=== PATIENT | male | born 1950 | race Caucasian/White ===

== ENCOUNTER → 2020-03-24 | Outpatient (CLI) | payer OTHER, MEDICARE ==
[~2020-03-24] VITALS: Ht 172.7 cm; Wt 73.5 kg
[~2020-03-24] MED LIST: CARVEDILOL12.5 MG PO; LOSARTAN POTAS100 MG PO; NABUMETONE 500500 M1 PO; NORVASC 2.5 MG2.5 M1 PO; PROTONIX40 M2 PO
[2020-03-24 13:25] VITALS: BP 121/83
--- NOTE | 2020-03-24 14:23 | NUR ---
Pain Clinic Assessment: 1. History of Osteoarthritis: Left Lower Extremity Right Lower Extremity History of Rheumatoid Arthritis: Not Applicable 2. Height: 5 ft. 8 in. 172.7 cm. Weight: 162.0 lb. oz. 73.483 kg. Patient's BMI: 24.6 3. Vital Signs: BP: 121/83 Pulse: 62 Resp: 16 Temp: 02 Sat: 100 ECG Mon: 4. Pain Intensity: 2 5. Fall Risk: Dizziness: N Needs help standing or walking: N Fallen in the last 3 months: N Fall risk comments: 6. Patient on Blood Thinner: None 7. History of Hypertension: Y 8. Opioid Therapy greater than 6 weeks: N Opiate Contract Signed: 9. Risk Assessment Tool Provided: LOW 10. Functional Assessment Tool: 11. Recreational Drug Use: Never Drug Type: Tobacco Use: Never Smoker Tobacco Type: Amount or Packs/day: How Many Years: Alcohol Use: Yes Frequency: Weekly Quant: 1-2
--- NOTE | 2020-03-25 07:30 | HPC ---
[facility] [address] [place] [address] PAIN MANAGEMENT CONSULTATION Name: JUAN DAVID COLIN Room #: REG VERNON Fabiola#: [id number] Admission: 03/24/20 Attend Phys: Filipe Tyson DO Discharge: Date of : 50 Report #: [id number] THIS REPORT FOR: cc: Prasanna García MD, John L. MD Johnson, James E. DO ~ DATE OF SERVICE: 03/24/2020 CHIEF COMPLAINT: Diffuse chest wall pain. HISTORY OF PRESENT ILLNESS: As you know, the patient is a very pleasant 69-year-old male who reports longstanding history of diffuse chest wall pain. The patient states that he has had these symptoms on and off for over 3-4 years. He states that he received a Medrol Dosepak in the past, which was wholly ineffective at treating the symptoms. He does have a history of prostate cancer and was sent for a nuclear bone scan, which was negative for any metastatic disease. It did show changes within the bilateral knees and shoulders consistent with degenerative arthritic changes. The patient does report night sweats times about 3 weeks. He has had a weight loss of about 4 pounds, but this has restabilized to his normal baseline and has not been a concern to the patient. He reports the Biofreeze topically has been helpful. He was recently taken off of rosuvastatin, which apparently improved some of his back pain, but did not resolve his symptoms entirely. Due to lack of improvement with conservative treatment, the patient was referred to our clinic to discuss options for diffuse chest wall pain treatment. The patient indicates today pain is continuous, "but sometimes just goes away for quite a while." The patient indicates the pain as sharp, shooting, tender when describing symptoms. He indicates pain level of 2/10 daily, average at 5/10, worst pain has been is 8/10. The patient states that "pushing on it" causes increase in pain. This is done at diffuse areas within the chest wall. Nothing tends to improve pain except for anti-inflammatory medications he is taking [id number]. He has been referred to our service to discuss treatment options for diffuse chest wall pain. PAST MEDICAL HISTORY: 1. Hypertension. 2. Dyslipidemia. 3. Gastroesophageal reflux disease. PAST SURGICAL HISTORY: 1. Rotator cuff repair on the left. 2. Rotator cuff repair on the right. 3. Left knee meniscus repair. 4. Cholecystectomy. [address] [address] PAIN MANAGEMENT CONSULTATION Name: JUAN DAVID COLIN Room #: REG CLI Fabiola#: [id number] Admission: 03/24/20 Attend Phys: Filipe Tyson DO Discharge: Date of : 50 Report #: [id number] SOCIAL HISTORY: The patient denies tobacco, IV or illicit drug use. Admits to 1 alcohol beverage per day. He is retired about 11 years ago. He is not receiving workmen's compensation nor is he trying to obtain disability benefits. He is not in litigation in regards to pain. He is unaccompanied at today's visit. REVIEW OF SYSTEMS: Positive for fever, night sweats, wearing corrective eyewear, hearing loss with tinnitus, frequent urination, nocturia, diffuse chest wall pain. All other review of systems negative per 12-point review of systems other than those listed in history of present illness. Pain impact score 5/70 indicating minimal interference of daily activities secondary to pain. ALLERGIES: No reported drug allergies. CURRENT MEDICATIONS: Protonix 40 mg once a day, amlodipine 5 mg once a day, losartan 100 mg per day, carvedilol 12.5 mg b.i.d. IMAGING: No imaging available. PQRS: The patient has known arthritic changes of the bilateral shoulders and bilateral knees. No rheumatoid arthritis. He is placing current pain score 2/10. He is not a fall risk nor has he had a fall in last 3 months. He is not on blood thinners, but is treated for hypertension. He is not on opioids and has a low opiate addiction potential. Pain impact score of 5/70 indicating minimal interference of daily activities secondary to pain. PHYSICAL EXAMINATION: VITAL SIGNS: Blood pressure 121/83, pulse 62, respiratory rate 16 and unlabored. The patient is 100% on room air. Height 5 feet 8 inches tall, weight 162 pounds, BMI calculated 24.6. GENERAL: Well-developed, well-nourished, well-hydrated 69-year-old male appearing stated age. He is in no acute distress, awake, alert and oriented x 3. Current pain score 2/10. HEENT: Normocephalic, atraumatic. Pupils equal, round and reactive. GENERAL: Speech is fluent. The patient deemed an excellent historian. LUNGS: Clear, no wheeze, rhonchi or rales. CARDIOVASCULAR: Regular. No appreciable gallop, no rub. ABDOMEN: Soft, nontender, nondistended. EXTREMITIES: Show no clubbing, no cyanosis, no edema. MUSCULOSKELETAL: The patient has diffuse palpatory tenderness throughout the chest wall. It appears to be related to the cartilaginous structures of the chest wall. There does not appear to be any bony type of pain. Deep pressure over the anterior chest wall, lateral chest wall and posterior chest wall cause an increase in pain. He is intact to light touch throughout dermatomal distribution of T1 through T12, as well as L1 through S1. [facility] [address] [place] [address] PAIN MANAGEMENT CONSULTATION Name: JUAN DAVID COLIN Room #: REG Omero Interiano.#: [id number] Admission: 03/24/20 Attend Phys: Filipe Tyson DO Discharge: Date of : 50 Report #: [id number] There are no rashes, lesions or ulcerations overlying the distribution concerning of herpes zoster. Deep inhalation and exhalation causes no significant change in overall pain. Pressure on the area mainly just inferior to the nipple on the left and above the angle of the rib is the most painful area of discomfort. Upper extremity and lower extremity strength equal and symmetrical. ASSESSMENT: 1. Generalized chest wall pain. 2. Recurrent chronic pain. PLAN: 1. 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 It does not appear to be pleuritic in nature. It is unchanged by inhalation and exhalation consistent with pleurisy of any type. The chest wall discomfort is point specific, but is diffuse in its presentation. The patient indicates no changes in his activities. He has had no changes in diet. He has had no injury to the chest wall, concerning of generalized chondritic reaction to trauma. The patient is unable to correlate the symptoms to any specific activity, but does note pain is exacerbated with lying down. The patient has trialed steroid exposure with no efficacy, which should essentially rule out chondritis as the source of symptoms as one would expect to see significant improvement with a Medrol Dosepak even if transiently. This would rule out the necessity of point specific injections over the area as he has seen no improvement with steroids prior. The patient is agreeable with the plan as he "did not wish to undergo multiple shots." He is interested in looking to more conservative options and to try to determine the source of his ongoing recurrent chest wall symptoms. 2. We did discuss with the patient that treatment options should remain conservative at first as we continue to try to evaluate for the source of symptoms. We would recommend initiation of a nonsteroidal anti-inflammatory. The patient states that he has taken hikj-xis-moijdbg anti-inflammatories in the past with fairly good efficacy. We recommend a prescription form of nabumetone to take 3 times a day with meals. This should help reduce the inflammatory process I believe is promoting most of his symptoms. The patient will initiate the medication as quickly as possible. He will watch for side effects of dyspepsia, worsening of blood pressure, or lower extremity edema. If he notes any side effects, discontinue immediately and call for further instructions. 3. I would recommend the patient begin evaluation for condition such as generalized inflammatory processes. I recommend the patient to undergo labs for erythrocyte sedimentation rate, C-reactive protein, and AMEYA. There is always concern with generalized pain disorder such as one presenting today that an inflammatory process has begun, the fact that it is waxing and waning in its presentation is consistent with some of the rheumatologic issues that could be [address] [address] PAIN MANAGEMENT CONSULTATION Name: JUAN DAVID COLIN Room #: REG VERNON Hicks#: [id number] Admission: 03/24/20 Attend Phys: Filipe Tyson DO Discharge: Date of : 50 Report #: [id number] expected in an advanced aged individual and further evaluation I think is appropriate. The patient is agreeable to undergo the evaluation. We will have those findings, hopefully in the next couple of days to review. 4. I have recommended the patient at least to undergo x-ray imaging of the thoracic spine. Further evaluation necessarily I think it would be helpful. Some of the distribution of the patient's symptoms appears to be dermatomal in its origin and may be specifically related to pathology of the thoracic spine. We do have a nuclear scan that shows negative for any findings in the area, but this does not preclude typical changes in the thoracic region such as thoracic disk bulging or stenosis. We will evaluate this further with x-ray imaging. The findings will be available to the patient tomorrow. 5. We have plans to see the patient back in followup visit once he has completed his lab evaluation and his imaging study. We will then discuss the findings and determine if the nabumetone started will be beneficial. We will keep you apprised of his response. 6. We wish to thank Dr. Prasanna García for the referral of the patient to our clinic. We will keep you apprised of response to treatment as we address his atypical diffuse chest wall pain. Again, we wish to thank you for the opportunity to see the patient in consultation. <ELECTRONICALLY SIGNED> By: Filipe Tyson DO 03/25/20 0730 [id number] Filipe Tyson DO /nt
== END ==
LOC: PAIN 07:00
PROVIDERS: ATTEND Anesthesiology Pain Medicine
DX: M47.814 Spondylosis without myelopathy or radiculopathy, thoracic region (principal); M41.84 Other forms of scoliosis, thoracic region; M47.812 Spondylosis without myelopathy or radiculopathy, cervical region; R07.89 Other chest pain; G89.29 Other chronic pain

== ENCOUNTER → 2020-03-30 | Outpatient (CLI) | payer OTHER, MEDICARE ==
[~2020-03-30] VITALS: Ht 172.7 cm; Wt 73.5 kg
[~2020-03-30] MED LIST changes: +TRIAMTERENE/HCT1 CA1 PO
[2020-03-30 11:05] VITALS: BP 109/77
--- NOTE | 2020-03-30 11:17 | NUR ---
Pain Clinic Assessment: 1. History of Osteoarthritis: Left Lower Extremity Right Lower Extremity History of Rheumatoid Arthritis: Not Applicable 2. Height: 5 ft. 8 in. 172.7 cm. Weight: 162.0 lb. oz. 73.483 kg. Patient's BMI: 24.6 3. Vital Signs: BP: 109/77 Pulse: 72 Resp: 16 Temp: 02 Sat: 98 ECG Mon: 4. Pain Intensity: 3 5. Fall Risk: Dizziness: N Needs help standing or walking: N Fallen in the last 3 months: N Fall risk comments: 6. Patient on Blood Thinner: None 7. History of Hypertension: Y 8. Opioid Therapy greater than 6 weeks: N Opiate Contract Signed: 9. Risk Assessment Tool Provided: LOW 10. Functional Assessment Tool: 11. Recreational Drug Use: Never Drug Type: Tobacco Use: Never Smoker Tobacco Type: Amount or Packs/day: How Many Years: Alcohol Use: Yes Frequency: Quant:
--- NOTE | 2020-03-30 13:25 | HPC ---
[facility] [place] [address] [place] [address] PAIN MANAGEMENT CONSULTATION Name: JUAN DAVID COLIN Room #: REG VERNON Fabiola#: [id number] Admission: 03/30/20 Attend Phys: Filipe Tyson DO Discharge: Date of : 50 Report #: [id number] THIS REPORT FOR: cc: Prasanna García MD, John L. MD Johnson, James E. DO ~ DATE OF SERVICE: 03/30/2020 CHIEF COMPLAINT: Diffuse chest wall pain. HISTORY OF PRESENT ILLNESS: As you know, the patient is a pleasant 69-year-old male, who reports longstanding history of diffuse chest wall pain. He states pain has been present on and off for 3-4 years. He states he underwent treatment with a Medrol Dosepak, which provided no pain improvement. Due to lack of improvement with conservative treatment options, it was determined the patient might see improvement with interventional treatments. We saw the patient on 03/24/2020. I advised the patient that given the lack of efficacy with steroid medication in the past, trigger point injections over the area of discomfort, which were multiple at that time, would not provide much in the way of improvement given his lack of efficacy with an oral steroid. The patient and I did discuss other treatment options including medication management, utilizing anti-inflammatory medication on a consistent basis. The patient reported good efficacy with utilizing xmbm-hwo-ybkcofm ibuprofen and thus, we placed the patient on nabumetone. He returns today in followup visit stating that he has filled his nabumetone and has not taken the medication and has had near-complete resolution of symptoms. He is experiencing pain basically one area of discomfort. It is in the left anterior chest wall, overlying the cartilaginous structures, but not on the ribs themselves. There is no costosternal tenderness. He indicates that despite this discomfort, he was able to participate in golf and all daily activities, in fact, he is very pleased with response to his current condition. He returns today with pain no greater than 3/10 and this is only with pressure over his left lower chest wall. ALLERGIES: NO KNOWN DRUG ALLERGIES. CURRENT MEDICATIONS: Carvedilol 12.5 mg twice a day, losartan 100 mg once a day, amlodipine 2.5 mg once a day, pantoprazole 40 mg once a day, triamterene/hydrochlorothiazide 37.5/25 once a day. SOCIAL HISTORY: The patient denies tobacco, IV or illicit drug use. Admits to 1 alcohol beverage per day. He is retired about 11 years ago. He is unaccompanied at today's visit. IMAGING: X-ray of the thoracic spine shows mild arthritic changes, no lateralizing features and no concerning findings other than mild arthritic [address] [address] PAIN MANAGEMENT CONSULTATION Name: JUAN DAVID COLIN Room #: REG CLI Fabiola#: [id number] Admission: 03/30/20 Attend Phys: Filipe Tyson DO Discharge: Date of : 50 Report #: [id number] changes in the facet joints, consistent with age. PQRS: The patient has known arthritic changes of bilateral shoulders, bilateral knees and mildly in the thoracic spine. No rheumatoid arthritis. Pain intensity today no greater than 3/10. He is not a fall risk nor has he had a fall in last 3 months. He is not on blood thinners, but is treated for hypertension. He is not on chronic opioids and has a low opioid addiction potential based on our assessment tool. Pain impact today , indicating minimal interference of daily activities secondary to pain. PHYSICAL EXAMINATION: VITAL SIGNS: Blood pressure 109/77, pulse 72, respiratory rate 16 and unlabored. The patient is 98% on room air. Height 5 feet 8 inches tall, weight 162 pounds, BMI calculated 24.6. GENERAL: Well-developed, well-nourished, well-hydrated 69-year-old male, appears stated age. He is in no acute distress, awake, alert and oriented x 3. Current pain score is rated no greater than 3/10. HEENT: Normocephalic, atraumatic. Pupils equal, round and reactive. Speech is fluent. EXTREMITIES: Show no clubbing, no cyanosis. No appreciable edema. MUSCULOSKELETAL: The patient has only tenderness to palpation over the cartilaginous area of the anterior left chest wall. There is no tenderness over the costosternal junction consistent with costochondritis. Deep inhalation and exhalation causes no change in overall pain. There are no changes in skin color or texture overlying the area of discomfort. ASSESSMENT: 1. Generalized chest wall pain. 2. Spontaneous resolving chest wall discomfort. PLAN: 1. The patient returns today in followup visit with only a point specific area of discomfort that he is able to localize just over the cartilaginous structures of the anterior chest wall. There is no involvement of the actual true ribs. There is no costosternal junction tenderness consistent with costochondritis. It does appear that he is experiencing some chest wall discomfort, but his x-ray imaging shows no concerning findings, underlying. He does have some mild arthritic changes based on the x-ray imaging, but no concerning intra-lung issues. No fractures, no rib changes, no structural abnormalities noted. We did discuss this with the patient today. He has had spontaneous resolution of majority of his symptoms, except for this one area of discomfort. He is complaining of pain no greater than 3/10 and no significant interference in daily activity. We discussed that the patient's following conservative treatment options for therapy. 2. We recommend he utilizes Voltaren gel that he applies to his right knee, to apply over the chest wall area. This should help address some of his symptoms. [facility] [address] [place] [address] PAIN MANAGEMENT CONSULTATION Name: JUAN DAVID COLIN Room #: REG VERNON Hicks#: [id number] Admission: 03/30/20 Attend Phys: Filipe Tyson DO Discharge: Date of : 50 Report #: [id number] This is a very conservative treatment approach and he may find benefit with its use. I would recommend no more than about an inch to an inch and a half to be applied up to 3 times a day to the area. He has cswh-aia-vnxggye medication in the form of diclofenac 1% solution. He can use this up to 4 times a day. 3. We did advise the patient to trial the nabumetone that was provided at our last visit. He had reported in the past that he received excellent benefit with the ibuprofen therapy and I do feel that he may need to take an as needed NSAID for pain control. Nabumetone is a very effective agent. He will watch for any side effects with its use including dyspepsia, worsening of blood pressure, lower extremity edema. If he notes any side effects, discontinue immediately. 4. We did review the patient's recent lab data. I am pleased to advise the patient, I do not see any concerning findings from a sed rate or C-reactive protein that would indicate some underlying rheumatologic issue. To definitively define what the patient is experiencing in the anterior chest wall has been difficult. I am advising the patient at this time it does not appear to be an autoimmune response. This cannot be ruled out completely, but given the lack of any objective data, I would not place this high on my differential. 5. We plan to see the patient back in followup visit on an as needed basis. We did discuss the possibility of injecting over the area of discomfort on the left chest wall. The fact that he received no benefit with oral steroids would indicate that it is likely not responsive to steroid, but we would be more than willing to give this injection a trial if the patient wishes to do so. At this point, the patient wishes to delay that type of treatment and utilize more conservative options. The fact that his symptoms have improved and he has seen excellent benefit with akfd-[id number]-jgvdgsh medication, he wishes to remain as conservative as possible. If this is then ineffective at alleviating symptoms long-term, then he would look towards injections if deemed necessary. We will be available to see him back if he wishes to do so. <ELECTRONICALLY SIGNED> By: Filipe Tyson DO 03/30/20 1325 [id number] Filipe Tyson DO /nt
== END ==
LOC: PAIN 06:42
PROVIDERS: ATTEND Anesthesiology Pain Medicine
DX: R07.89 Other chest pain (principal); Z79.899 Other long term (current) drug therapy